=== PATIENT | female | born 1995 | race Caucasian/White ===

== ENCOUNTER 2023-11-28 11:40 | Inpatient (IN) ==
[2023-11-28] MEDS ORDERED: Lidocaine 1% VIAL 10 MG/ML 30 ML VIAL INJ PRN (13:35)
[2023-11-28] MEDS ORDERED: Nalbuphine 10 MG/ML 1 ML VIAL IV PRN (13:35)
[2023-11-28] MEDS ORDERED: Buffered Lidocaine 1% SYRIN 1 ml INTRADERM ONE (13:35)
[2023-11-28 14:29] LABS: Urine Benzodiazepine Screen None Detected (None Detect); Urine Cannabinoids Screen None Detected (None Detect); Urine Opiates Screen None Detected (None Detect)
[2023-11-28] MEDS: Lactated Ringers 1000 ml BAG 1,000 ML IV ONE (15:12)
[2023-11-28 15:20] LABS: ABS Basophils 0.1 10^3/uL (0.0-0.1); ABS Eosinophils 0.1 10^3/uL (0.0-0.5); ABS Lymphocytes 2.6 10^3/uL (1.0-4.8); ABS Monocytes 0.6 10^3/uL (0.0-0.9); ABS Neutrophils 9.9 10^3/uL (1.5-7.6); Eosinophil % 0.4 %; Lymphocyte % 19.7 %; Mean Corpuscular Hgb Conc 33.5 g/dL (31-36); Mean Corpuscular Volume 77.8 fL (80-97); Mean Platelet Volume 7.7 fL (7.5-11.2); Platelet Count 334 10^3/uL (150-450); Red Blood Count 4.24 10^6/uL (3.63-4.92); Red Cell Distribution Width 15.5 % (12-17); White Blood Count 13.2 10^3/uL (3.8-11.8)
[2023-11-28] MEDS ORDERED: Phenylephrine 40 mcg/mL 10mL (400mcg) SYRINGE ONE (15:47)
[2023-11-28] MEDS: OBEPIDURAL (200 ML) 200 ML EPIDURAL ONE (16:08)
[2023-11-28] MEDS: Lidocaine 1.5% EPI 1:200,000 30 ML SDV ONE (16:11)
[2023-11-28] MEDS: Lactated Ringers 1000 ml BAG 1,000 ML IV SCH (16:13)
[2023-11-28] MEDS ORDERED: Lactated Ringers 1000 ml BAG 1,000 ML IV ONE (16:21)
[2023-11-28] MEDS ORDERED: Phenylephrine 40 mcg/mL 10mL (400mcg) SYRINGE IV PUSH PRN ×2 (16:21)
[2023-11-28] MEDS ORDERED: Sodium Citrate/Citric Acid LIQ 15 ML UDC PO PRN (16:21)
[2023-11-28] MEDS ORDERED: OBEPIDURAL (200 ML) 200 ML EPIDURAL SCH (17:00)
[2023-11-28] MEDS ORDERED: Lactated Ringers 1000 ml BAG 1,000 ML IV SCH ×2 (17:00→21:00)
[2023-11-28 17:32] LABS: Urine Appearance Clear; Urine Bilirubin Negative (Negative); Urine Blood Negative (Negative); Urine Color Yellow; Urine Glucose Negative (Negative); Urine Ketones 2+ (Negative); Urine Nitrite Negative (Negative); Urine Protein 1+ (>=30 mg/dL) (Negative); Urine Specific Gravity 1.028 (1.002-1.030); Urine Urobilinogen Negative (Negative)
[2023-11-28 17:35] LABS: Urine Bacteria Absent /HPF (Absent); Urine Red Blood Cell 3+(>10/hpf) /HPF (0-Trace); Urine Squamous Epithelial Cell Present /HPF (Absent); Urine White Blood Cell Trace(0-5/hpf) /HPF (0-Trace)
[2023-11-28] MEDS: Oxytocin in LR 20,000 MILLI.UNIT/1,000 ML BAG IV SCH (17:35)
[2023-11-28] MEDS ORDERED: Influenza Vaccine *TRI* 2024-25* 0.5 ML SYRINGE IM ONE (18:00)
[2023-11-28] MEDS ORDERED: Glycerin ADULT 2.4 gm SUPP PR PRN (20:39)
[2023-11-28] MEDS ORDERED: Oxytocin in LR 20,000 MILLI.UNIT/1,000 ML BAG IV SCH (20:40)
[2023-11-28] MEDS ORDERED: Measles, Mumps,Rubella VACC 0.5 ML/VIAL SUBCUT ONE (20:55)
[2023-11-28] MEDS: Witch Hazel PAD JAR TOPICAL PRN (21:46)
[2023-11-28] MEDS: Dibucaine 1% OINT 28.35 GM TUBE PR PRN (21:46)
[2023-11-29 06:39] LABS: ABS Basophils 0.1 10^3/uL (0.0-0.1); ABS Eosinophils 0.1 10^3/uL (0.0-0.5); ABS Lymphocytes 2.9 10^3/uL (1.0-4.8); ABS Monocytes 1.4 10^3/uL (0.0-0.9); ABS Neutrophils 8.5 10^3/uL (1.5-7.6); ABS Nucleated RBC 0.01 10^3/ul; Eosinophil % 0.9 %; Lymphocyte % 22.1 %; Mean Corpuscular Hgb Conc 33.4 g/dL (31-36); Mean Corpuscular Volume 77.7 fL (80-97); Mean Platelet Volume 7.5 fL (7.5-11.2); Nucleated Red Blood Cells % 0.1 %/100WBC (0.0-0.8); Platelet Count 277 10^3/uL (150-450); Red Blood Count 3.86 10^6/uL (3.63-4.92); Red Cell Distribution Width 15.4 % (12-17); White Blood Count 12.9 10^3/uL (3.8-11.8)
[2023-11-29 07:29] LABS: HIV 4th Generation Nonreactive (Nonreactive)
[2023-11-30] MEDS: Influenza Vaccine *TRI* 2024-25* 0.5 ML SYRINGE IM ONE (09:10)
[2023-11-30] MEDS: Measles, Mumps,Rubella VACC 0.5 ML/VIAL SUBCUT ONE (09:12)
[2023-11-30 10:23] VITALS: BP 117/66
== END 2023-11-30 15:10 | disposition home or self-care (01) | DRG 807 ==
LOC: MCHOBOUT 11:40 → MCHOB 13:10
PROVIDERS: ADMIT Advanced Practice Midwife; ATTEND Advanced Practice Midwife